=== PATIENT | male | born 1990 | race Two or more races ===

== ENCOUNTER 2024-12-22 03:56 | Emergency (ER) | payer MEDICAID, SELFPAY ==
[2024-12-22 03:56] VITALS: BMI 25.8
[2024-12-22 04:02] VITALS: BP 138/90; PULSE 120; RESP 18; TEMP 36.7; O2SAT 97
--- NOTE | 2024-12-22 04:12 | PD.EDANX ---
ED Anxiety RME/HPI General Chief Complaint: Anxiety Stated Complaint: ANXIETY Time Seen by Provider: 12/22/24 03:59 Arrival date/time: 12/22/24 03:56 RME / HPI RME / HPI narrative: This section includes all my notes and documentations, including HPI, PE, and ED course. Baudilio Viveros MD HPI: 33yo male with a history of anxiety, HLD presents to the ED for a chief complaint of palpitations and increased anxiety. Patient states he woke up just prior to arrival feeling scared, reporting when he got up to use he restroom, he started having palpitations and felt lightheaded. He states he felt like he was going to pass out, so he called his sister, who brought him in for evaluation. Patient reports associated diarrhea for few days. Patient denies any N/V, rectal bleeding, cough, fever, chills. He is not on any medications. Drank a lot of for the past few days with family in town. Prior, no alcohol for least a month. Vapes tobacco daily. No other complaints reported. ROS: All negative except as documented in HPI. Physical Exam: General: Alert and oriented. Appears anxious. Eyes: Conjunctivae and lids clear. ENT: No nasal congestion. Neck: Supple. Heart: Tachycardic, regular rhythm. Lungs: No respiratory distress. Good air movement. No rhonchi, wheezing, rales. Abdomen: Soft and nontender. Normal bowel sounds. No distension. No rebound or guarding. Back: No CVA tenderness. Skin: Warm and dry. Neuro: Alert and oriented X 3. I reviewed all diagnostic test results. My interpretation of the EKG is sinus rhythm with no acute ST?T changes. Blood tests and urine tests remarkable for EtOH 118. At this point, diagnoses include Alcohol Intoxication and Anxiety. Treatment here included IV fluid, Zofran, Ativan. Significant improvement noted. Based on my best medical judgment, made decision no further evaluation or treatment indicated at this time. Patient understands and agrees to the discharge instructions customized and printed, see below. Discharge Instructions from Dr. Viveros printed for you: 1. You are treated today for alcohol intoxication and anxiety. 2. Avoid alcohol consumption and vaping altogether. 3. For good hydration, increase oral fluid and maintain clear urine. If dark or yellow, increase oral fluid. 4. Xanax as needed for anxiety. 5. See a private doctor on 12/24/2024 for recheck and further care. Ask to review all test results and official radiology reports, to make sure you receive all necessary follow-ups and monitoring. Ask for help to quit alcohol and vaping and for your anxiety. 6. Seek immediate medical care with worsening or with any concerns. Baudilio Viveros MD Related Data Previous Rx's ?Medication ?Instructions ?Recorded ibuprofen 800 mg tablet 800 mg PO TID #30 tabs 05/02/19 albuterol sulfate 90 mcg/actuation 2 puff inhalation Q6H PRN 03/19/21 aerosol inhaler (Ventolin HFA) shortness of breath or wheezing #8.5 grams promethazine-DM 6.25 mg-15 mg/5 mL 5 ml PO Q6H PRN cough #473 mL 03/19/21 oral syrup alprazolam 0.5 mg tablet (Xanax) 0.5 mg PO BID PRN anxiety #10 tabs 12/22/24 Allergies Allergy/AdvReac Type Severity Reaction Status Date / Time No Known Allergies Allergy Verified 12/02/23 16:12 Review of Systems Review of Systems Systems Reviewed: All systems reviewed, normal except as documented Past Medical History Past Medical History NEUROLOGIC: Negative Neurological Disorders CARDIAC: Negative Cardiac Disorders or Congestive Heart Failure RESPIRATORY: Negative Chronic Obstructive Pulmonary Disease (COPD) GENITOURINARY: Negative Renal Disease ENDOCRINE: Negative Diabetes Mellitus Type 1 or Diabetes Mellitus Type 2 Social History SMOKING STATUS: Never smoker ED Exam Narrative Physical exam: As noted in HPI. Course Quality Measures none Vital Signs Vital signs: Vital Signs Temperature 98.1 F 12/22/24 04:02 Pulse Rate 120 H 12/22/24 04:02 Respiratory Rate 18 12/22/24 04:02 Blood Pressure 138/90 H 12/22/24 04:02 Pulse Oximetry (%) 97 12/22/24 04:02 Oxygen Delivery Method Room Air 12/22/24 04:02 Anxiety MDM Narrative MDM Narrative: Scribe Attestation: 12/22/24 Chitra Almazan am scribing for and in the presence of Dr. Viveros. 33yo male with a history of anxiety, HLD presents to the ED for a chief complaint of palpitations. Patient states he woke up feeling scared, reporting when he got up to use he restroom, he started having palpitations and felt lightheaded. He states he felt like he was going to pass out, so he called his sister, who brought him in for evaluation. Patient reports associated diarrhea. Patient denies any N/V, rectal bleeding, cough, fever, chills or any other associated symptoms. He is not on any medications. Patient states he drank alcohol last night and vapes nicotine. No other complaints reported. Patient data External records reviewed:: [facility] previous records (Per chart review, patient was seen here on 08/26/23 for a panic attack.) Clinical information provided by:: patient Social determinants that could affect healthcare access:: alcohol use Patient has the following chronic illnesses:: HLD How is presenting disease/condition affected by chronic disease/condition?: uneffected by Evaluation data The following diagnostics were reviewed and interpreted by me:: lab results and EKG tracing(s) (My interpretation of the EKG: NSR (102 bpm) with no ST-T changes. Baudilio Viveros MD) Lab and/or radiology exams considered but not ordered:: none Interpretation Summary: I reviewed all diagnostic test results. My interpretation of the EKG is sinus rhythm with no acute ST?T changes. Blood tests and urine tests remarkable for EtOH 118. Medications / Prescriptions Medications or Prescriptions considered but not ordered:: none Medication administrations:: Treatment here included IV fluid, Zofran, Ativan. Consultations Consultation(s) initiated? (list below): No Diagnosis Differential diagnosis anxiety: hyperventilation, panic disorder and acute anxiety Most likely diagnosis given after review of the tests above:: At this point, diagnoses include Alcohol Intoxication and Anxiety. Admission Indicated Admission indicated?: not indicated Explain why admission is indicated or not indicated:: Admission not indicated after significant improvement. Admission Request Was there a request for admission?: No Disposition Plan Disposition Plan: Discharge Discharge Attestation Discharge Attestation: The patient and all family members were given an opportunity to ask questions and understood the discharge instructions. Discharge instructions specifically effects, indications for sooner follow up or return to the emergency department, and the expected course of current diagnosis. Patient condition: Stable Discharge Plan Plan Patient Disposition: HOME (Self Care) Prescriptions/Referrals Prescriptions/Med Rec: New alprazolam [Xanax] 0.5 mg tablet 0.5 mg PO BID PRN (Reason: anxiety) Qty: 10 0RF No Action ibuprofen 800 mg tablet 800 mg PO TID Qty: 30 0RF promethazine-DM 6.25-15 mg/5 mL syrup 5 ml PO Q6H PRN (Reason: cough) Qty: 473 0RF albuterol sulfate [Ventolin HFA] 90 mcg/actuation HFA aerosol inhaler 2 puff INH Q6H PRN (Reason: shortness of breath or wheezing) Qty: 8.5 0RF Referrals: Paul Sanchez MD [Primary Care Provider] - In 1 week Problem List Clinical Impression: Alcohol intoxication, Anxiety Patient/Caregiver Discharge Instructions Discharge Activity: activity as tolerated Education Materials: ED Anxiety Reaction, ED Alcohol Intoxication Additional Instructions: Discharge Instructions from Dr. Viveros printed for you: 1. You are treated today for alcohol intoxication and anxiety. 2. Avoid alcohol consumption and vaping altogether. 3. For good hydration, increase oral fluid and maintain clear urine. If dark or yellow, increase oral fluid. 4. Xanax as needed for anxiety. 5. See a private doctor on 12/24/2024 for recheck and further care. Ask to review all test results and official radiology reports, to make sure you receive all necessary follow-ups and monitoring. Ask for help to quit alcohol and vaping and for your anxiety. 6. Seek immediate medical care with worsening or with any concerns. Print Language: Palauan Stand Alone Forms: Nicole Award Info., Patient Portal Info Letter
--- NOTE | 2024-12-22 04:15 | EKG_ITS ---
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
[2024-12-22] MEDS: SODIUM CHLORIDE 0.9% 1000 ML 1,000 ML 999 ML IV (04:33)
[2024-12-22] MEDS: ONDANSETRON INJ 2 MG/ML INJ 2 ML 4 MG IV (04:39)
[2024-12-22] MEDS: LORazepam 2 MG/ML VIAL 1.5 MG IVP (04:39)
[2024-12-22 04:54] LABS: Basophils % (Auto) 0 % (0-2.5); Eosinophils % (Auto) 0 % (0-10); Hematocrit 45.2 % (41.0-53.0); Hemoglobin 15.6 g/dL (13.5-16.0); Immature Granulocytes % (Auto) 0 % (0-0); Immature Granulocytes Auto 0.01 Thou/mm3 (0.00-0.00); Lymphocytes # (Auto) 1.5 Thou/mm3 (1.0-4.8); Lymphocytes % (Auto) 20 % (10-50); Mean Corpuscular HGB Conc 34.5 g/dl (31.0-37.0); Mean Corpuscular Hemoglobin 29.5 pg (25.0-35.0); Mean Corpuscular Volume 85 fL (80-100); Monocytes # (Auto) 0.4 Thou/mm3 (0.0-0.8); Monocytes % (Auto) 5 % (0-12); Neutrophils # (Auto) 5.6 Thou/mm3 (1.8-7.7); Neutrophils % (Auto) 75 % (37-80); Nucleated Red Blood Cell % 0 /100 WBC (0); Platelet Count 259 Thou/mm3 (140-440); RDW Standard Deviation 37.7 fL (35.1-43.9); Red Blood Count 5.29 Miln/mm3 (4.50-5.90); White Blood Count 7.4 Thou/mm3 (3.8-10.6)
[2024-12-22 05:07] LABS: Partial Thromboplastin Time 29.1 Seconds (22.0-36.0); Prothrombin Time 11.4 Seconds (9.0-12.2)
[2024-12-22 05:08] LABS: Alanine Aminotransferase 85 U/L (10-49); Albumin, Serum 4.9 gm/dL (3.5-5.0); Albumin/Globulin Ratio 1.7 (1.2-2.2); Alcohol, Blood Medical 118.8 mg/dL (0-10.0); Alkaline Phosphatase 101 U/L (46-116); Amylase 107 U/L (30-118); Anion Gap 9 (7-16); Aspartate Amino Transferase 40 U/L (0-34); BUN/Creatinine Ratio 8 Ratio (12-20); Bilirubin,Direct 0.1 mg/dL (0.0-0.3); Bilirubin,Total 0.4 mg/dL (0.3-1.2); Blood Urea Nitrogen 9 mg/dL (9-23); Calcium 9.2 mg/dL (8.3-10.6); Calcium (Corrected) 9.2 mg/dL (8.5-10.1); Carbon Dioxide 24.3 mMol/L (20.0-31.0); Chloride 105 mMol/L (98-107); Creatinine (Component) 1.1 mg/dL (0.6-1.3); Estimated Creatinine Clearance 99.5 mL/min (>60); Free T4 (Free Thyroxine) 1.56 ng/dL (0.89-1.76); Globulin 2.9 gm/dL (2.3-3.5); Glucose 119 mg/dL (74-106); Lipase 41 U/L (12-53); Magnesium 2.1 mg/dL (1.6-2.6); Osmolality,Calculated 275 (275-295); Potassium 3.6 mMol/L (3.4-5.1); Sodium 138 mMol/L (136-145); Thyroid Stimulating Hormone 1.66 uIU/mL (0.55-4.78); Total Protein 7.8 gm/dL (5.7-8.2); Troponin I < 0.002 ng/mL (0.0-0.045); eGFR > 60 See Note
[2024-12-22 05:37] VITALS: BP 113/71; PULSE 96; RESP 16; O2SAT 96
--- NOTE | 2024-12-22 05:39 | PC.NURSE ---
PT WENT TO BATHROOM, I INFORMED HIM HE NEED TO URINATE IN THE CUP BUT PT CAME BACK , HE SAID HE DID NOT URINATE , HE VOMITED IN THE BATHROOM.
[2024-12-22 07:07] VITALS: BP 112/66; PULSE 84; RESP 18; TEMP 36.9; O2SAT 98
== END 2024-12-22 07:20 | disposition home or self-care (01) ==
PROVIDERS: Emergency Provider Emergency Medicine; PCP Family Medicine
DX: F41.9 Anxiety disorder, unspecified (principal); F10.929 Alcohol use, unspecified with intoxication, unspecified; R00.0 Tachycardia, unspecified; Y90.5 Blood alcohol level of 100-119 mg/100 ml
CPT/HCPCS: 36415; 80053; 80307; 80320; 82150; 82248; 83690; 83735; 84439; 84443; 84484; 85025; 85610; 85730; 93005; 96361; 96374; 96375; 99284; J2060; J2405; J7030; G0480